=== PATIENT | male | born 1960 | race Asian ===

== ENCOUNTER 2019-04-01 07:33 | Day surgery (SDC) | payer BC ==
[2019-04-01] VITALS (11 sets, daily range): BP systolic 102–136; BP diastolic 65–77
[~2019-04-01] VITALS: Ht 170.2 cm; Wt 77.1 kg
[~2019-04-01 07:33] MED LIST: ASPIR 8181 MG ORAL; FOLIC ACID1 MG ORAL; GEMFIBROZIL600 MG ORAL; LR 1000ml 1,000 ML IVLG SCH; MULTIVITAMINS1 EAC2 ORAL
[2019-04-01] MEDS ORDERED: Lidocaine 1% Plain 30 ml INJ ONE (07:50)
[2019-04-01] MEDS ORDERED: LR 1000ml ONE (08:00)
[2019-04-01] MEDS ORDERED: Propofol 200mg/20ml IV ONE (08:00)
--- NOTE | 2019-04-01 08:01 | Short Stay Surgery H&P ---
History of Present Illness History of Present Illness Chief Complaint History of colon cancer with rectal bleeding and diarrhea HPI Se Irvin Quezada is a 58 year old male who was admitted on for Gerds,Abdominal Pain/colon CA and diarrhea Patient History Allergies: Coded Allergies: NO KNOWN DRUG ALLERGIES (Verified Allergy, Unknown, 04/06/15) PAST MEDICAL HISTORY: (1) Hyperlipidemia (2) Myocardial infarct, old (3) Coronary artery disease (4) H/O colectomy Medication History Scheduled Aspirin* (Aspir 81*), 81 MG ORAL DAILY, (Reported) Folic Acid* (Folic Acid*), 1 MG ORAL DAILY, (Reported) Gemfibrozil (Gemfibrozil*), 600 MG ORAL DAILY, (Reported) Multivitamins* (Multivitamins*), 1 TAB ORAL DAILY, (Reported) Review of Systems Cardiovascular: Reports: no symptoms Respiratory: Reports: no symptoms Skeletal: Reports: no symptoms Gastrointestinal: Reports: gastro esophageal reflux disease Genitourinary: Reports: no symptoms Neurologic: Reports: no symptoms Endocrine: Reports: no symptoms Hematologic: Reports: no symptoms Physical Exam Skin: normal HENT: normal Heart: normal Lungs: normal Extremities: normal Genitourinary: normal Plan Plan of Care Upper and lower Gi endoscopies with biopsy. Preop Interventions none. Summary of Findings See the reports Attestation Are the patient's medical conditions optimized for surgery? Attestation Response: yes Jacob Blake MD Apr 01, 2019 08:01
--- NOTE | 2019-04-01 08:02 | Pre-Procedure Note/Attestation ---
Pre-Procedure Note/Attestation Complete Prior to Procedure Planned Procedure: left Procedure Narrative: Examination of the upper and lower GI tract via endoscopy with obtaining biopsies Attestation I attest that I discussed the nature of the procedure; its benefits; risks and complications; and alternatives (and the risks and benefits of such alternatives ), prior to the procedure, with the patient (or the patient's legal student services representative). I attest that, if there was a reasonable possibility of needing a blood transfusion, the patient (or the patient's legal student services representative) was given the [facility] standardized written summary, pursuant to the Corby Jerardo Blood Safety Act ([place] Health and Safety Code # 1645, as amended). I attest that I re-evaluated the patient just prior to the surgery and that there has been no change in the patient's H&P, except as documented below: Jacob Blake MD Apr 01, 2019 08:02
[2019-04-01] MEDS ORDERED: ATORVASTATIN CA20 MG ORAL (08:03)
[2019-04-01] MEDS ORDERED: EFFIENT10 MG PO (08:03)
[2019-04-01] MEDS ORDERED: METOPROLOL SUCC25 MG ORAL (08:03)
[2019-04-01] MEDS ORDERED: ZANTAC150 MG ORAL (08:03)
[2019-04-01] MEDS ORDERED: LR 1000ml 1,000 ML IVLG SCH (08:04)
--- NOTE | 2019-04-01 08:10 | Anethesia Preoperative Eval ---
Anesthesia Pre-op PMH/ROS General Date of Evaluation: Apr 01, 2019 Anesthesiologist: David ASA Score: ASA 3 Mallampati Score Class I : Soft palate, uvula, fauces, pillars visible Class II: Soft palate, uvula, fauces visible Class III: Soft palate, base of uvula visible Class IV: Only hard plate visible Mallampati Classification: Class II Surgeon: Hayden Anesthesia History: none Family History: no anesthesia problems Allergies: Coded Allergies: NO KNOWN DRUG ALLERGIES (Verified Allergy, Unknown, 04/06/15) Medications: see eMAR Patient NPO?: Yes Past Medical History Cardiovascular: Reports: CAD - Stent X 4, SD Gastrointestinal/Genitourinary: Reports: other - Colorectal CA Anesthesia Pre-op Phys. Exam Physician Exam Vital Signs Date Time Temp Pulse Resp B/P (MAP) Pulse Ox O2 Delivery O2 Flow Rate FiO2 04/01/19 08:00 97.3 67 20 136/77 99 Room Air Constitutional: NAD Neurologic: CN 2-12 intact Cardiovascular: RRR Respiratory: CTA Gastrointestinal: S/NT/ND Airway Exam Mallampati Score: Class II MO: limited ROM: limited Teeth: missing, intact Anesthesia Pre-op A/P Risk Assessment & Plan Assessment: ASA 3 Plan: TIVA Status Change Before Surgery: No Shine Hernandez MD Apr 01, 2019 08:10
[2019-04-01] MEDS ORDERED: Atropine Sulfate 0.4mg/ml inj IVP PRN (08:15)
[2019-04-01] MEDS ORDERED: Hydromorphone 0.5mg/0.5ml inj IVP PRN (08:15)
[2019-04-01] MEDS ORDERED: Ketorolac 30mg Inj IV PRN ×2 (08:15)
[2019-04-01] MEDS ORDERED: HYDROcodone/Acetamin 5/325 tab ORAL PRN (08:15)
[2019-04-01] MEDS ORDERED: Meperidine 50mg/ml Inj(FOR RIGORS ONLY) IVP PRN (08:15)
[2019-04-01] MEDS ORDERED: fentaNYL 100 mcg/2 mL IV PRN (08:15)
[2019-04-01] MEDS ORDERED: DiphenhydrAMINE 50mg/ml Inj IVP PRN (08:15)
[2019-04-01] MEDS ORDERED: Midazolam 2mg/2ml Inj IVP PRN (08:15)
[2019-04-01] MEDS ORDERED: oxyCODONE HCL/Acetaminophen 5/325mg ORAL PRN (08:15)
[2019-04-01] MEDS ORDERED: LORazepam Inj 2mg/ml 1ml IV PRN (08:15)
[2019-04-01] MEDS ORDERED: Labetalol 5mg/ml 20ml vial IV PRN (08:15)
[2019-04-01] MEDS ORDERED: Metoclopramide 10mg/2ml Inj IVP PRN (08:15)
[2019-04-01] MEDS ORDERED: HYDROcodone/Acetamin 7.5/325 tab ORAL PRN (08:15)
--- NOTE | 2019-04-01 08:17 | Immediate Post-Op Evaluation ---
Immediate Post-Op Evalulation Immediate Post-Op Evalulation Procedure: EGD, Colonoscopy Date of Evaluation: Apr 01, 2019 Time of Evaluation: 08:58 IV Fluids: 200 LR Blood Products: 0 Estimated Blood Loss: 2 Urinary Output: 0 Blood Pressure Systolic: 93 Blood Pressure Diastolic: 66 Pulse Rate: 59 Respiratory Rate: 16 O2 Sat by Pulse Oximetry: 100 Temperature (Fahrenheit): 97 Pain Score (1-10): 1 Nausea: No Vomiting: No Complications 0 Patient Status: awake, reacts, patent, none Hydration Status: adequate Shine Hernandez MD Apr 01, 2019 08:17
--- NOTE | 2019-04-01 08:37 | Endoscopy Procedure Note ---
Endoscopy Procedure Note General Indication for Procedure: History of colon cancer with partial colectomy/ diarrhea/rectal bleed/GERDs Procedures Performed: EGD - Normal Upper GI. endoscopy with biopsies obtained from duodenal bulb, second portion of duodenum and gastric area., colonoscopy - Status post partial colectomy with anastomosis of terminal ileum to the proximal decending colon. Minimal hemorrhoids found. Biopsies obtained from terminal ileum and decending colon. Specimen: yes Pt Tolerated Procedure Well: Yes Estimated Blood Loss: none Anesthesia Anesthesiologist: Dr. Mayers Anesthesia: moderate sedation Medications Medication Given: see anesthesia record Inserted Devices Implant(s) used?: No Quality Quality of Bowel Preparation: Fair Did scope reach the cecum?: Yes Was there any complications?: No GI Core Measures 50 yrs or older w/o bx or poly: Yes 10yrs. F/U recommended: Yes If not recommended, why?: <3yrs. since last colonoscopy: No Med reason:<3 yrs.: System Reason:<3 yrs.: Last colonoscopy >= to 3yrs: Yes Jacob Blake MD Apr 01, 2019 08:37
--- NOTE | 2019-04-01 08:38 | Discharge Instructions ---
Discharge Instructions Discharge Instructions Follow up with: Dr. Blake after 2 weeks in the office. For Congestive Heart Failure Reminder Report to your physician any weight gain of 5 pounds or more in one week. Jacob Blake MD Apr 01, 2019 08:38
--- NOTE | 2019-04-01 08:48 | 48 Hour Post Anesthesia Eval ---
Post Anesthesia Evaluation Procedure: EGD, Colonoscopy Date of Evaluation: Apr 01, 2019 Time of Evaluation: 11:21 Blood Pressure Systolic: 129 0: 71 Pulse Rate: 67 Respiratory Rate: 18 Temperature (Fahrenheit): 98.2 O2 Sat by Pulse Oximetry: 100 Airway: patent Nausea: No Vomiting: No Pain Intensity: 1 Hydration Status: adequate Cardiopulmonary Status: Stable Mental Status/LOC: patient returned to baseline Follow-up Care/Observations: 0 Post-Anesthesia Complications: 0 Follow-up care needed: ready to discharge Shine Hernandez MD Apr 01, 2019 08:48
--- NOTE | 2019-04-01 10:15 | Operative Note - Dictated ---
DATE OF OPERATION: 04/01/2019 SURGEON: Jacob Blake M.D. PROCEDURE: Esophagogastroduodenoscopy with biopsy. PREOPERATIVE DIAGNOSES: Diarrhea, abdominal pain, history of gastroesophageal reflux. POSTOPERATIVE DIAGNOSIS: Normal upper GI endoscopy. Biopsies were taken from gastric body, duodenal bulb, and second portion of duodenum. MEDICATION USED: Per Dr. Hernandez. INSTRUMENT: GIF Olympus upper GI video endoscope. DESCRIPTION OF PROCEDURE: The patient after arriving in the endoscopy unit, was told about the risks and benefits of the procedure, which he accepted and signed informed consent. At this time, he was put on the left lateral decubitus position. After adequate IV sedation, the scope was gently passed through the cricopharyngeal area, was lodged into the upper esophagus and gradually advanced towards gastroesophageal junction. The entire length of esophagus was completely within normal limits. No evidence of abnormality, pathology, strictures, exudate, ulcers, etc. was found. The scope was then guided into the GE junction, which looked quite normal. No evidence of hiatal hernia or Owens's. At this time, the scope was advanced into the stomach. Gastric cavity was distended with insufflation of air and gradually the areas of the fundus and the body and the antrum were examined, which looked completely normal without any mucosal finding. There was no evidence of gastritis, ulcers, tumors, polyps etc. At this point, one random biopsy from gastric body obtained and subsequently scope was passed through the antrum, introduced into the pylorus and first and second portion of duodenum were examined, which looked quite normal, however, one biopsy from duodenal bulb and the other one from the second portion of duodenum were obtained to rule out celiac disease. At this point, the scope was pulled out and the procedure was terminated. The patient tolerated the procedure well. Jacob Blake M.D. DR: KATARINA JOB#: [id number] CC:
--- NOTE | 2019-04-01 10:30 | Operative Note - Dictated ---
DATE OF OPERATION: 04/01/2019 SURGEON: Jacob Blake M.D. PROCEDURE: Total colonoscopy with biopsy. PREOPERATIVE DIAGNOSIS: History of colon cancer, status post partial colectomy with rectal bleeding and diarrhea. POSTOPERATIVE DIAGNOSIS: Status post partial colectomy with anastomosis of ileum to the proximal descending colon with minimal internal hemorrhoids, otherwise the examination was normal. No evidence of colitis was done. Biopsies were taken from terminal ileum and descending colon. MEDICATION USED: Per Dr. Hernandez, anesthesiologist. INSTRUMENT: GIF Olympus video colonoscope. DESCRIPTION OF PROCEDURE: The patient after arriving in the endoscopy unit, was told about risks and benefits of the procedure, which he accepted and signed informed consent. At this time, the scope was gradually advanced into the rectal area, which on a retroflexion maneuver revealed evidence of minimal internal hemorrhoids, which seemed to be the cause of his recent complaint of rectal bleeding. The rest of the rectum looked absolutely normal. However, there was fluidy stool in the colon consistent with fair/poor colon prep. At this time gradually, the scope was passed through the descending colon, which revealed completely normal. Upon reaching to the proximal part, it was seen that the patient had anastomotic procedure with the connection of terminal ileum to the proximal descending colon. At this time, the scope was gradually advanced into the terminal ileum and one biopsy from terminal ileum was also obtained, which looked absolutely normal. Its mucosa was absolutely normal. Finally, the scope was gradually pulled out and one biopsy from descending colon was also obtained per random. The patient tolerated the procedure well. It took about like 4 minutes to gradually pull the scope out. At this time, the patient was sent to observation room. Jacob Blake M.D. DR: KATARINA JOB#: [id number] CC:
== END 2019-04-01 10:25 | disposition home or self-care (01) ==
LOC: GAS 07:33
DX: K62.5 Hemorrhage of anus and rectum (principal); Z85.038 Personal history of other malignant neoplasm of large intestine; R19.7 Diarrhea, unspecified; Z90.49 Acquired absence of other specified parts of digestive tract; E78.5 Hyperlipidemia, unspecified; I25.2 Old myocardial infarction; I25.10 Atherosclerotic heart disease of native coronary artery without angina pectoris; Z79.82 Long term (current) use of aspirin; K21.9 Gastro-esophageal reflux disease without esophagitis; Z95.5 Presence of coronary angioplasty implant and graft; K29.50 Unspecified chronic gastritis without bleeding
CPT/HCPCS: 43239; 45380; J2001; J2250; J2704; 94003; 94150